=== PATIENT | female | born 1955 | race Caucasian/White ===

== ENCOUNTER 2016-07-02 22:16 | Emergency (ER) | payer BC, MEDICARE ==
--- NOTE | 2016-07-03 00:03 | DIAGNOSTIC IMAGING REPORT ---
PROCEDURE: CT HEAD WITHOUT CONTRAST INDICATION: DIZZINESS TECHNIQUE: Noncontrast axial images with sagittal and coronal reformations. COMPARISON: None. FINDINGS: Sulci, ventricular system, and brain parenchyma are normal. No evidence of acute intracranial process. Visualized mastoids and sinuses are clear. IMPRESSION: 1. Negative non-enhanced head CT. 2. Findings discussed with Dr. Tesfaye at 12:02 a.m., [place] Standard Time
--- NOTE | 2016-07-03 00:56 | ED CLINICAL REPORT ---
Clinical Report - Physicians/Mid Levels [facility] [address] [place] [address] 07/02/2016 22:20 [id number] Time Seen: 22:35. Arrived- By private vehicle. Historian- patient. HISTORY OF PRESENT ILLNESS Chief Complaint: Inability to keep train of thought, dizziness, increased tiredness. This started about 5 days ago and is still present. The patient has had trouble concentrating. The patient has had a change in diabetic routine (PT has not been taking her glipizide, because she was out of lancets for a couple of months, and did not check her blood sugar. She is on metformin, but is supposed to augment with glipizide, as needed.): but was not found unresponsive. Not a penitentiary resident. No history of chronic dementia. No alcohol recently, recent drug use or medication given prior to arrival. Dextro stick was not low prior to arrival. No weakness, numbness or recent fall. No difficulty walking. Usually is alert and oriented X3 and usually has normal mobility. (Pt and state that she will be talking or performing a task, and suddenly forget what she was doing, or what she was going to say. Pt states she also has been falling asleep very easily.). Similar symptoms previously: None. Recent medical care: Not recently seen/assessed. REVIEW OF SYSTEMS No fever, headache, head injury, chest pain or difficulty breathing. No cough, sputum production, blurred vision, sore throat or nausea. No diarrhea, black stools, difficulty with urination, skin rash or joint pain. No vomiting, bloody stools or back pain. The patient has had dizziness. She has had abdominal pain (Pt did have a day of abdominal pain several days ago, but this has resolved.). All systems otherwise negative, except as recorded above. PAST HISTORY Problems: Diabetes Mellitus. Hypertension. Additional Surgeries: Hysterectomy. Medications: TraMADol HCl ER Oral. OxyCODONE HCl ER Oral. MetFORMIN HCl Oral. Lisinopril Oral. Allergies: No Known Drug Allergy. SOCIAL HISTORY Never smoker. No alcohol use or drug use. ADDITIONAL NOTES The nursing notes have been reviewed. PHYSICAL EXAM Vital Signs: 07/02/2016 22:36 BP: 148/73. HR: 96. RR: 16. O2 saturation: 97%. Temp: 98.4 F. Pain level now: 0/10. Have been reviewed. Appearance: Alert. No acute distress. Head: Head atraumatic. Eyes: Pupils equal, round and reactive to light. ENT: Normal ENT inspection. Airway intact. Moist mucous membranes. Neck: Normal inspection. Neck supple. CVS: Normal heart rate and rhythm. Heart sounds normal. Pulses normal. Respiratory: No respiratory distress. Breath sounds normal. Abdomen: Soft and nontender. Back: Normal inspection. Skin: Skin warm and dry. Normal skin color. No rash. Normal skin turgor. Extremities: Extremities exhibit normal ROM. No lower extremity edema. Neuro: Alert. Oriented X 3. Mood/affect normal. Speech normal. Cranial nerves normal (as tested). No cerebellar findings. No motor deficit. No sensory deficit. (Pt occasionally forgets what she was going to say in the middle of conversation, but overall, is appropriate and oriented.). LABS, X-RAYS, AND EKG CT Head: Normal study. No acute changes. No bony abnormalities, no hemorrhage, no intracranial mass, no midline shift and no hydrocephalus. No atrophy. Head CT performed without contrast. The study was independently viewed by me, interpreted by the radiologist and contemporaneously by me and discussed with the radiologist. Prior studies were not available for comparison. Laboratory Tests: UA-Culture if indicated: (JEFFREY: 07/02/2016 23:50) ( MsgRcvd 07/03/2016 00:15) Final results Test Result Flag Units (Reference) URINE COLOR YELLOW URINE APPEARANCE CLEAR URINE GLUCOSE 3+ (NEGATIVE) URINE BILIRUBIN NEGATIVE (NEGATIVE) URINE KETONE NEGATIVE (NEGATIVE) URINE SPECIFIC GRAVITY <= 1.005 L (1.010-1.030) URINE PH 5.5 (5.0-8.0) URINE PROTEIN NEGATIVE (NEGATIVE) URINE UROBILINOGEN 0.2 EU/dL (0.2-1.0) URINE NITRITE NEGATIVE (NEGATIVE) URINE BLOOD 1+ (NEGATIVE) URINE LEUK ESTERASE TRACE (NEGATIVE) URINE RBC 0-1 rbc/hpf (0-1) URINE WBC 0-1 wbc/hpf (0-1) URINE EPITHELIAL CELLS 0-1 EPI/hpf (0-5) URINE BACTERIA TRACE (<1+) (NONE SEEN) URINE COMMENT CULTURE INDICATED URINE CULTURES ARE SET-UP BASED ON THE FOLLOWING CRITERIA:POSITIVE NITRITEPOSITIVE LEUKOCYTE ESTERASEGREATER THAN 10 WHITE BLOOD CELLSMODERATE (2+) OR GREATER BACTERIA CBC w Diff: (JEFFREY: 07/02/2016 23:45) ( [facility] 07/02/2016 23:58) Final results Test Result Flag Units (Reference) WHITE BLOOD COUNT 7.2 K/uL (4.5-11.5) RED BLOOD COUNT 4.12 M/uL (4.00-5.20) HEMOGLOBIN 11.5 L gm/dL (12.0-16.0) HEMATOCRIT 35.4 L % (36.0-46.0) MEAN CELL VOLUME 86 fL (80-100) MEAN CORPUSCULAR HGB 28 pg (26-34) MEAN CORPUSCULAR HGB CONC 33 g/dL (31-37) RED CELL DISTRIBUTION WIDTH 12.8 % (11.6-14.8) PLATELET COUNT 164 K/uL (150-400) LYMPH % 19.5 L % (25-40) MONO % 4.9 % (3-14) GRANULOCYTE % 75.6 (53-90) TSH: (JEFFREY: 07/02/2016 23:45) ( [facility] 07/03/2016 00:40) Final results Test Result Flag Units (Reference) THYROID STIMULATING HORMONE 2.535 uIU/mL (0.30-3.74) CHEM 13 PANEL: (JEFFREY: 07/02/2016 23:45) ( [facility] 07/03/2016 00:16) Final results Test Result Flag Units (Reference) GLUCOSE 389 H mg/dL (70-110) BUN 22 H mg/dL (7-18) CREATININE 1.9 H mg/dL (0.6-1.3) Estimated GFR 28.66 mL/min Estimated GFR- 34.73 mL/min Note: Persistent reduction over 3 months in eGFR<60 mL/min/1.73 m2 defines CKD. Patients with eGFR values>=60 mL/min/1.73 m2 may also have CKD if evidence ofpersistent proteinuria. Additional information may be foundat www.kidney.org. SODIUM 131 L mmol/L (136-145) POTASSIUM 4.8 mmol/L (3.5-5.1) CHLORIDE 94 L mmol/L (98-107) CARBON DIOXIDE 32 mmol/L (21-32) CALCIUM 9.4 mg/dL (8.5-10.1) TOTAL PROTEIN 7.1 g/dL (6.4-8.2) ALBUMIN 3.0 L g/dL (3.3-5.0) BILIRUBIN, TOTAL 0.5 mg/dL (0.0-1.0) ALKALINE PHOSPHATASE 92 U/L (46-116) AST (SGOT) 14 L U/L (15-37) ALT (SGPT) 15 U/L (12-78) MAGNESIUM 1.6 L mg/dL (1.8-2.4) CPK 71 U/L (24-260) TROPONIN I <0.05 L ng/mL (0.00-1.5) TROPONIN REFERENCE RANGE:<0.1 NEGATIVE0.1-1.5 INDETERMINANT>1.5 POSITIVE . Pulse Oximetry: 07/02/2016 22:36 O2 saturation: 97%. (FIO2 - room air). Interpretation: normal. PROGRESS AND PROCEDURES Course of Care: PT was given a 1 L bolus of NS, and worked up for her symptoms. Pt was found to have some degree of renal insufficiency (potentially, in part, from dehydration) and her blood sugar was elevated at 389. I did advise the pt that she needs to get back on her glipizide, and start checking her blood sugars regularly. Her sx are most likely from hyperglycemia (likely chronic, as pt has been noncompliant with her glipizide for a couple of months). Patient and spouse counseled in person regarding the patient's stable condition, test results, diagnosis and need for follow-up. Concerns were addressed. Old medical records reviewed. Disposition: Discharged. Condition: stable. CLINICAL IMPRESSION Moderate dehydration Moderate hyperglycemia Mild hypomagnesemia. INSTRUCTIONS Warnings: Further evaluation is necessary in order to conduct further tests. It is very important to follow up with a physician. GENERAL WARNINGS: Return or contact your physician immediately if your condition worsens or changes unexpectedly, if not improving as expected, or if other problems arise. Your Current Medications: CONTINUE TAKING THE FOLLOWING MEDICATIONS: Lisinopril Oral. MetFORMIN HCl Oral. OxyCODONE HCl ER Oral. TraMADol HCl ER Oral. Follow-up: Follow up with your doctor. Call for the next available appointment. Reason for referral: Follow up memory lapses, and discuss further testing. Understanding of the discharge instructions verbalized by patient. (Electronically signed by Lili Tesfaye MD 07/03/2016 23:47)
--- NOTE | 2016-07-03 00:56 | ED NURSING NOTES ---
Clinical Report - Nurses [facility] [address] [place] [address] 07/02/2016 22:20 Patient: CHANTAL FARR TRIAGE Triage time 22:36. Acuity: LEVEL 4. Alert. HANNA COMA SCORE: [place] Coma Scale: 15- eyes open spontaneously (4); best verbal response- oriented x 4 (5); best motor response- obeys commands (6). --22:43 TonyaB, R.N. 22:36 07/02/16. BP: 148/73. HR: 96. RR: 16. O2 saturation: 97%. Temp: 98.4 F. Pain level now: 0/10. --22:43 TonyaB, R.N. Chief Complaint: DIZZINESS and NAUSEA (Memory Loss). --03:11 Richard Vora R.N. Weight: 76.2 kg. Height/Length: 71 inches. BMI: 23.4. --22:41 TonyaB, R.N. Medications Lisinopril Oral. --22:38 TonyaB, R.N. MetFORMIN HCl Oral. --22:38 TonyaB, R.N. OxyCODONE HCl ER Oral. --22:38 TonyaB, R.N. TraMADol HCl ER Oral. --22:39 TonyaB, R.N. Allergies No Known Drug Allergy. --22:37 TonyaB, R.N. History Arrived by private vehicle. Historian: patient and family. Accompanied by family. ( pt complains of memory loss, dizziness, nausea and loss of vision and abd pain. Pt states has been going on for five days). Onset. (5 days). 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 PAST MEDICAL HX: Diabetes mellitus. Hypertension. Immunizations: up-to-date. SOCIAL HX: Never smoker. No alcohol use or drug use. No infectious disease exposure. SELF HARM ASSESSMENT: A self harm assessment was performed. The patient answered "no" to the question "Have you recently felt down, depressed, or hopeless?", "Have you noticed less interest or pleasure in doing things?", "Do you have thoughts of harming or killing yourself?", "Are you here because you tried to hurt yourself?", "Have you ever tried to hurt yourself before today?", "Have you recently had thoughts about harming or killing others?" and "Do you have any dangerous items in your possession?". FALL RISK ASSESSMENT: Fall risk assessment completed. No fall risk identified. NUTRITIONAL RISK ASSESSMENT: The nutritional risk assessment revealed no deficiencies. FUNCTIONAL ASSESSMENT: Functional assessment: no impairments noted. LEARNING NEEDS ASSESSMENT: The learning needs assessment revealed no barriers. ABUSE ASSESSMENT: Abuse assessment: The patient was asked "Do you feel safe in your home?", "Are you afraid to go home?", "Has anyone hurt you or threatened to hurt you?", "Are you afraid of your partner?" and "Have children witnessed violence in the home?". SKIN INTEGRITY ASSESSMENT: Skin integrity risk assessment completed. No skin integrity risk identified. --22:43 Bea Huynh PROBLEMS: Diabetes Mellitus. Hypertension. --22:39 Ban Huynh. ADDITIONAL SURGERIES: Hysterectomy. --22:39 Ban Huynh. Interventions ID band on patient. To treatment room. --22:43 Bea Huynh PHYSICAL ASSESSMENT GENERAL / NEURO / PSYCH: Alert. Oriented X 4. Appears in no acute distress. HEENT: Pupils equal, round and reactive to light. No facial asymmetry noted. Mucous membranes are pink. RESPIRATORY: Respirations not labored. Chest nontender. Breath sounds within normal limits. CVS: Normal sinus rhythm noted. Capillary refill less than 2 seconds. Pulses within normal limits. GI / : Abdomen soft and normal bowel sounds. Abdominal tenderness. SKIN: Skin intact. Skin is warm and dry. Normal skin turgor. --22:44 Bea Huynh NURSING PROGRESS NOTES 23:56 07/02/2016 Site #1 started via IV in the right antecubital space with an 20g angiocath, with aseptic technique and good blood return. Blood drawn: rainbow set. Labeled in the presence of the patient and sent to the lab. --23:57 Bea Huynh 23:56 07/02/2016 Started bag #1 1000 mL IV Fluids IV NS (Saline); at 1000 mL/hr over 1 hour(s) via site #1. Allergies verified and confirmed 5 rights. IV patency established. IV site checked: no pain, redness, or swelling. IV flushed thoroughly pre- and post-medication administration. --23:57 Ban Huynh. The patient is resting quietly. RESPIRATORY: No respiratory distress. Breath sounds normal. SKIN: Skin is warm and dry. Skin color within normal limits. Two patient identifiers checked. Call light placed in reach. Side rails up x 2. Bed placed in lowest position. Brakes of bed on. --00:24 Bea Huynh 00:52 07/03/2016 IV Fluids IV NS Discontinued: bag #1 completed. Total amount infused: 1000 mL. IV patency established. IV site checked: no pain, redness, or swelling. IV flushed thoroughly. --00:52 Bea Huynh DISPOSITION / DISCHARGE 01:07/03/2016 Site #1 removed upon discharge. Bandage applied. --: Bea Huynh Departure time: 01:28. Condition at departure: improved. No learning barriers present. Discharge instructions provided and reviewed with the patient and spouse. Treatments reviewed. Patient and spouse verbalized understanding. Written instructions provided in Belgian. The patient was discharged by the physician. She was discharged home and accompanied by spouse. She left the Emergency Department ambulatory and via private vehicle. Spouse driving. FALL RISK ASSESSMENT: Fall risk assessment completed. No fall risk identified. --:28 Bea Huynh 01:07/03/16. BP: 138/74. HR: 71. RR: 16. O2 saturation: 97%. Temp: deferred. --:28 Bea Huynh Locked/Released at 07/03/2016 3:12 by Richard Vora R.N.
--- NOTE | 2016-07-03 00:56 | ED ORDER SUMMARY ---
..... Patient: CHANTAL FARR OrderSheet [facility] VisitID: [id number] [address] [place] [address] 60y, F Registration Date/Time: 07/02/2016 ORDER SHEET Weight: 76.2 kg Allergies: No Known Drug Allergy GENERAL ORDERS: CT Head wo Cont Urgent (23:30 07/02/2016 Raegan MURILLO) (23:37 RFay) Cardiac Panel Stat (:07/02/2016 Raegan MURILLO) (Ack 23:42 [facility] ER Plant Etiologist) (23:55 TBowen R.N.) UA-Culture if indicated Urgent (:07/02/2016 Raegan MURILLO) (Ack 23:42 [facility] ER Plant Etiologist) (23:55 TBowen R.N.) TSH Urgent (:07/02/2016 Raegan MURILLO) (Ack 23:42 [facility] ER Plant Etiologist) (23:55 TBowen R.N.) MEDICATION ORDERS: IV FLUIDS: IV NS : initial bolus 1000 mL (1000 mL/hr), then none - (NOW) (23:31 07/02/2016 Raegan MURILLO) (23:57 TBowen R.N.) ORDER SHEET NOTES: [Electronically signed by Richard Vora R.N. (03:12 07/03/2016)] [Electronically signed by Lili Tesfaye MD (23:47 07/03/2016)] [Electronically locked/signed by Richard Vora R.N. (03:12 07/03/2016)]
--- NOTE | 2016-07-03 00:56 | ED ORDER SUMMARY ---
..... Patient: CHANTAL FARR OrderSheet [facility] VisitID: [id number] [address] [place] [address] 60y, F Registration Date/Time: 07/02/2016 ORDER SHEET Weight: 76.2 kg Allergies: No Known Drug Allergy GENERAL ORDERS: CT Head wo Cont Urgent (23:30 07/02/2016 Raegan MURILLO) (23:37 RFay) Cardiac Panel Stat (:07/02/2016 Raegan MURILLO) (Ack 23:42 [facility] ER Asset Protection Greeter) (23:55 TBowen R.N.) UA-Culture if indicated Urgent (:07/02/2016 Raegan MURILLO) (Ack 23:42 [facility] ER Asset Protection Greeter) (23:55 TBowen R.N.) TSH Urgent (:07/02/2016 Raegan MURILLO) (Ack 23:42 [facility] ER Asset Protection Greeter) (23:55 TBowen R.N.) MEDICATION ORDERS: IV FLUIDS: IV NS : initial bolus 1000 mL (1000 mL/hr), then none - (NOW) (23:31 07/02/2016 Raegan MURILLO) (23:57 TBowen R.N.) ORDER SHEET NOTES: [Electronically signed by Richard Vora R.N. (03:12 07/03/2016)] [Electronically signed by Lili Tesfaye MD (23:47 07/03/2016)] [Electronically locked/signed by Richard Vora R.N. (03:12 07/03/2016)]
--- NOTE | 2016-07-03 23:48 | ED MAR SUMMARY ---
..... Medication Administration Record [facility] [address] [place] [address] Patient: CHANTAL FARR Visit ID: [id number] 60y, F Weight: 76.2 kg Height/Length: 71 in BMI: 23.4 ALLERGIES: No Known Drug Allergy Start 23:56 07/02/2016 Amina RWinsome, Stop 00:52 07/03/2016 Bea Huynh Medication Administered: IV NS (SALINE), Dose: IV Fluids over 1 hour(s), Rate: 1000 mL/hr, Dispensed: 1000 mL bag, Site: #1 right AC. Medication Ordered: IV NS : initial bolus 1000 mL (1000 mL/hr), then none - (NOW).
--- NOTE | 2016-07-03 23:48 | ED DISCHARGE INSTRUCTIONS ---
Patient: CHANTAL FARR General Instructions [facility] VisitID: [id number] [place] [address] 60y, F Registration Date/Time: 07/02/2016 Moderate dehydration Moderate hyperglycemia Mild hypomagnesemia. INSTRUCTIONS Warnings: Further evaluation is necessary in order to conduct further tests. It is very important to follow up with a physician. GENERAL WARNINGS: Return or contact your physician immediately if your condition worsens or changes unexpectedly, if not improving as expected, or if other problems arise. Your Current Medications: CONTINUE TAKING THE FOLLOWING MEDICATIONS: Lisinopril Oral. MetFORMIN HCl Oral. OxyCODONE HCl ER Oral. TraMADol HCl ER Oral. Follow-up: Follow up with your doctor. Call for the next available appointment. Reason for referral: Follow up memory lapses, and discuss further testing. Understanding of the discharge instructions verbalized by patient. ADDITIONAL INFORMATION Dehydration (Adult) Dehydration occurs when your body loses too much fluid. This may be the result of vomiting a lot or from diarrhea,sweating a lot, or a high fever. It may also happen if you dont drink enough fluid when youre sick. Misuse of diuretics (water pills) can also be a cause. Symptoms include thirst and feeling dizzy, weak, fatigued, or very drowsy. The diet described below is usually enough to treat most cases. Sometimes you may needmedicine. Home Care Follow these guidelines for home care: Drink at least 12 8-ounce glasses of fluid every day to overcome the dehydration. Fluid may include water; orange juice; lemonade; apple, grape, and cranberry juice; clear fruit drinks; electrolyte replacement and sports drinks; and teas and coffee without caffeine. If you have been diagnosed with a kidney disease, ask your doctor how much and what types of fluids you should drink to prevent dehydration. If you have kidney disease, drinking too much fluid can cause it build up in the your body and be dangerous to your health. If you have fever, muscle aching, or headache from a viral syndrome, you may useacetaminophen or ibuprofen, unless another medicine was prescribed for this.If you have chronic liver or kidney disease or ever had a stomach ulcer or GI bleeding, talk with your doctor before using these medicines. Don't take aspirin if you are younger than 18 and are ill with a fever.Aspirin raises the chance forsevere liver injury. Follow-up care Follow up with your health care provider if you don't get better in the next 24 to 48 hours. When to seek medical care Get prompt medical attention if any of theseoccur: Continued vomiting (cant keep liquids down) Frequent diarrhea (more than 5 times a day); blood (red or black color) or mucus in diarrhea Blood in vomit or stool Swollen abdomen or increasing abdominal pain Weakness, dizziness, or fainting Unusually drowsy or confused Reduced urine output or extreme thirst Fever of 100.4 F (38 C) oral or higher that does not get better with fever medication Diabetes with High Blood Sugar You have been treated for high blood sugar (hyperglycemia). This may be becauseof an infection or other illness;eating too many sweets or starches ; not taking enough insulin. Home care High blood sugar may cause symptoms that you can learn to recognize, such as these: If you feel like your blood sugar may be too high, measure it using a blood or urine test. If it is above your usual range, use the "sliding scale"rRegular insulin dose your doctor gave you to correct this. If no "sliding scale" orders were given, contact your doctor for further advice. If your blood sugar is over 300, and you can't reach your doctor, go to the hospital emergency room. Monitor and write down your blood sugars - and insulin dose, if you take insulin - atleast twice a day. Do this before breakfast and before dinner. Do this for the next 3 to 5 days. Follow-up care Follow up with your health care provderduring the next week to review your blood sugar records. You will find out if you need to adjust your dose of insulin or other medicine for blood sugar. When to seek medical care Get prompt medical attention if either of these occur: High blood sugar.Symptoms are frequent urination, feeling dizzy, thirst, headache, nausea or vomiting, abdominal pain, and drowsiness or loss of consciousness. Low blood sugar. Symptoms are fatigue, headache, shakes, excess sweating, hunger, anxiety, reduced vision, drowsiness, weakness, confusion or loss of consciousness, and seizure. You have been given the following additional information: Dehydration (Adult) Diabetic Hyperglycemia (Electronically signed by Lili Tesfaye MD 07/03/2016 23:47)
--- NOTE | 2016-07-03 23:48 | ED MAR SUMMARY ---
..... Medication Administration Record Located Within [facility] [address] [place] [address] Patient: CHANTAL FARR Visit ID: [id number] 60y, F Weight: 76.2 kg Height/Length: 71 in BMI: 23.4 ALLERGIES: No Known Drug Allergy Start 23:56 07/02/2016 Amina RWinsome, Stop 00:52 07/03/2016 Bea Huynh Medication Administered: IV NS (SALINE), Dose: IV Fluids over 1 hour(s), Rate: 1000 mL/hr, Dispensed: 1000 mL bag, Site: #1 right AC. Medication Ordered: IV NS : initial bolus 1000 mL (1000 mL/hr), then none - (NOW).
--- NOTE | 2016-07-03 23:48 | ED MED RECONCILIATION SUMMARY ---
Patient: CHANTAL FARR Medication Reconciliation Report [facility] VisitID: [id number] [address] [place] [address] 60y, F Registration Date/Time: 07/02/2016 Weight: 76.2 kg Height/Length: 71 in. BMI: 23.4 ALLERGIES: No Known Drug Allergy The patient's Home Medications are listed below: CONTINUE TAKING THE FOLLOWING MEDICATIONS: Lisinopril Oral MetFORMIN HCl Oral OxyCODONE HCl ER Oral TraMADol HCl ER Oral The source(s) of the original Home Medication information: Not obtained. The following Medications were given to the patient in the Emergency Department: IV NS IV Fluids bolus 0, then 1000 mL/hr, administered: 07/02/2016 11:56:00 PM The following Medications were prescribed to the patient: None.
--- NOTE | 2016-07-03 23:48 | ED MED RECONCILIATION SUMMARY ---
Patient: CHANTAL FARR Medication Reconciliation Report [facility] VisitID: [id number] [address] [place] [address] 60y, F Registration Date/Time: 07/02/2016 Weight: 76.2 kg Height/Length: 71 in. BMI: 23.4 ALLERGIES: No Known Drug Allergy The patient's Home Medications are listed below: CONTINUE TAKING THE FOLLOWING MEDICATIONS: Lisinopril Oral MetFORMIN HCl Oral OxyCODONE HCl ER Oral TraMADol HCl ER Oral The source(s) of the original Home Medication information: Not obtained. The following Medications were given to the patient in the Emergency Department: IV NS IV Fluids bolus 0, then 1000 mL/hr, administered: 07/02/2016 11:56:00 PM The following Medications were prescribed to the patient: None.
== END 2016-07-03 01:15 | disposition home or self-care (01) ==
LOC: ED SRH 22:16
DX: E11.65 Type 2 diabetes mellitus with hyperglycemia (principal); T38.3X6A Underdosing of insulin and oral hypoglycemic [antidiabetic] drugs, initial encounter; Z91.128 Patient's intentional underdosing of medication regimen for other reason; E86.0 Dehydration; E83.42 Hypomagnesemia; I10 Essential (primary) hypertension; Z79.84 Long term (current) use of oral hypoglycemic drugs; Z79.891 Long term (current) use of opiate analgesic; Z79.899 Other long term (current) drug therapy
CPT/HCPCS: 90004; 90100; 90469; 90616; 92610; 92720; 93140; 95059